=== PATIENT | female | born 2000 | race Caucasian/White ===

== ENCOUNTER 2021-02-17 09:55 | Outpatient (REF) | payer MEDICAID, SELFPAY ==
[2021-02-17 11:41] LABS: COVID-19 Test Positive (Negative)
== END 2021-02-17 09:56 | disposition home or self-care (01) ==
LOC: HO.LAB 09:55
PROVIDERS: Visit Provider Internal Medicine
DX: Z20.822 Contact with and (suspected) exposure to COVID-19 (principal)
CPT/HCPCS: 87635; C9803